=== PATIENT | male | born 1985 | race Asian ===

== ENCOUNTER 2019-12-07 00:18 | Emergency (ER) | payer BC ==
[~2019-12-07] VITALS: Ht 175.3 cm; Wt 96.6 kg
[2019-12-07 00:26] VITALS: BP 156/105; Ht 175.3 cm; Wt 96.6 kg
== END 2019-12-07 01:35 | disposition home or self-care (01) ==
LOC: ED 00:18
DX: R09.89 Other specified symptoms and signs involving the circulatory and respiratory systems (principal); R06.02 Shortness of breath; I10 Essential (primary) hypertension